=== PATIENT | male | born 1990 | race Caucasian/White ===

== ENCOUNTER 2018-06-23 09:04 | Emergency (ER) ==
[2018-06-23 09:09] VITALS: BP 151/79; TEMP 96.9; BMI 39.9
--- NOTE | 2018-06-23 10:15 | ED.PDOC ---
General ED Provider: Dr. MARCIN GALINDO Chief Complaint: Scrotal Pain Stated Complaint: scrotal pain mainly left sided Time Seen by Physician: 09:12 (no trauma reported ) Mode of Arrival: Walk-In Information Source: Patient Exam Limitations: No limitations Nursing and Triage Documentation Reviewed and Agree: Yes Does patient meet sepsis criteria?: No System Inflammatory Response Syndrome: Not Applicable Sepsis Protocol: For patient's 13 years and over: Temp is 96.8 and below OR 101 and greater Pulse >90 BPM Resp >20/minute Acutely Altered Mental Status Are patient's symptoms suggestive of a new infection, such as: -Pneumonia -Skin, Soft Tissue -Endocarditis -UTI -Bone, Joint Infection -Implantable Device -Acute Abdominal Infection -Wound Infection -Meningitis -Blood Stream Catheter Infection -Unknown Complaint Exam - Complaint/Exam Patient Complains of: Reports: Scrotal pain (left sided ) Onset/Duration: 1 day Symptoms Are: Still present Timing: Constant Initial Severity: Mild Current Severity: Mild Location of Pain: Reports: Left Character: Reports: Dull. Denies: Sharp, Colicky, Burning, Constant pressure, Tearing, Dark urine, Cloudy urine, Bloody urine Aggravating: Reports: Straining, Palpation Alleviating: Reports: Scrotal elevation Associated Signs and Symptoms: Reports: Scrotal pain. Denies: Back pain, Fever , Hematuria, Dysuria, Constipation, Blood in stool, Rectal pain, Appetite change , Nausea, Vomiting, Penile swelling, Penile discharge, Decreased urine output, Increased thirst, Decreased activity, Scrotal swelling, Abdominal Pain Testicular Torsion Risk Factors: Reports: None Surgical Obstruction Risk Factors: Reports: None Related Surgical History: Reports: None Abdominal Findings: Present: None Genitalia Exam: Present: Normal findings (no rectal done ) Differential Diagnoses: Epididymitis, Testicular Torsion Review of Systems - Review Of Systems Constitutional: Reports: No symptoms Eyes: Reports: No symptoms Ears, Nose, Mouth, Throat: Reports: No symptoms Respiratory: Reports: No symptoms Cardiac: Reports: No symptoms GI: Reports: No symptoms : Reports: Other (left sided scrotal pain ). Denies: Dysuria, Flank pain, Hematuria Musculoskeletal: Reports: No symptoms Skin: Reports: No symptoms Neurological: Reports: No symptoms Endocrine: Reports: No symptoms Hematologic/Lymphatic: Reports: No symptoms All Other Systems: Reviewed and Negative Past Medical History - Past Medical History Previously Healthy: Yes Endocrine: Reports: None Cardiovascular: Reports: None Respiratory: Reports: Other (sinusitis old records) Hematological: Reports: None Gastrointestinal: Reports: None Genitourinary: Reports: None Neuro/Psych: Reports: None Musculoskeletal: Reports: None Cancer: Reports: None - Surgical History General Surgical History: Reports: Unknown - Family History Family History: Reports: Unknown - Social History Smoking Status: Current every day smoker, Heavy tobacco smoker Hx Substance Use: No Alcohol Screening: None - Immunizations Tetanus Shot up to Date: No Physical Exam - Physical Exam Appearance: Well-appearing, No pain distress, Well-nourished Eyes: LULI, EOMI, Conjunctiva clear ENT: Ears normal, Nose normal, Oropharynx normal Respiratory: Airway patent, Breath sounds clear, Breath sounds equal, Respirations nonlabored Cardiovascular: RRR, Pulses normal, No rub, No murmur GI/: Soft, Nontender, No masses, Bowel sounds normal, No Organomegaly Musculoskeletal: Normal strength, ROM intact, No edema, No calf tenderness Skin: Warm, Dry, Normal color Neurological: Sensation intact, Motor intact, Reflexes intact, Cranial nerves intact, Alert, Oriented Psychiatric: Affect appropriate, Mood appropriate Critical Care Note - Critical Care Note Total Time (mins): 0 Course - Course Orders, Labs, Meds: Lab Review 06/23/18 09:22 Urine Color Yellow Urine Clarity Clear Urine pH 7.0 Ur Specific [place] 1.020 Urine Protein Trace Urine Glucose (UA) Negative Urine Ketones Negative Urine Blood Negative Urine Nitrite Negative Urine Bilirubin Negative Urine Urobilinogen 0.2 Ur Leukocyte Esterase Negative Ur Squamous Epith Cells Not present Urine Mucus 1+ Orders Category Date Time Status UA [URINALYSIS C & S IF INDICATED] Stat LAB 06/23/18 09:22 Completed ULTRASOUND SCROTUM [U/S SCROTUM] Stat RADS 06/23/18 10:00 Ordered Vital Signs: Temp Pulse Resp BP Pulse Ox 06/23/18 09:05 96.9 F L 73 16 151/79 H 98 Departure - Departure Time of Disposition: 11:30 Disposition: HOME SELF-CARE Discharge Problem: Pain in scrotum, Varicocele Instructions: Scrotal Pain (ED), Varicocele (ED), Testicle Pain (ED) Condition: Good Pt referred to PMD for follow-up: Yes IPMP verified?: No Additional Instructions: Please call your Family Physician as soon as possible to schedule a follow-up appointment. Allergies/Adverse Reactions: Allergies bee venom protein (honey bee) Adverse Reaction (Verified 06/23/18 09:09) venom-wasp Adverse Reaction (Verified 06/23/18 09:09) Home Medications: Ambulatory Orders Hydrocodone/Acetaminophen [[place] 10-325 Tablet] 1 each PO Q8HR #7 tablet Disposition Discussed With: Patient
--- NOTE | 2018-06-23 10:40 | US ---
Exam: Ultrasound scrotum and contents History: Left-sided scrotal pain FINDINGS: The right testicle measures 3.8 x 1.9 x 2.8 cm. Parenchymal echogenicity is normal and symmetric wit h contralateral side. Vascularity is normal. The epididymis shows a 0.57 cm cyst. The epididymis i s normal otherwise. There is no hydrocele or varicocele. The left testicle measures 3.8 x 2.2 x 2.8 cm. Parenchymal echogenicity vascularity are normal and s ymmetric with contralateral side. The epididymis is normal. Small varicocele is present. Moderate hydrocele is present. Impression: 1. Sonographically normal testicles 2. Small varicocele 3. Small to moderate left hydrocele, nonspecific.
== END 2018-06-23 10:45 | disposition home or self-care (01) ==
LOC: ED 09:04
DX: I86.1 Scrotal varices (principal); N50.82 Scrotal pain; F17.210 Nicotine dependence, cigarettes, uncomplicated
CPT/HCPCS: 81001; 99283